=== PATIENT | male | born 1990 | race Caucasian/White ===

== ENCOUNTER 2021-07-14 04:38 | Emergency (ER) | payer BC, OTHER ==
[~2021-07-14] VITALS: Ht 185.4 cm; Wt 79.0 kg
[2021-07-14 05:39] VITALS: BP 132/94
== END 2021-07-14 07:43 | disposition home or self-care (01) ==
LOC: ER 04:38
DX: R00.0 Tachycardia, unspecified (principal); F41.9 Anxiety disorder, unspecified
CPT/HCPCS: 93005; 99283

== ENCOUNTER 2022-04-30 14:11 | Emergency (ER) | payer OTHER ==
[~2022-04-30] VITALS: Ht 185.4 cm; Wt 77.0 kg
[2022-04-30 16:13] VITALS: BP 110/71
== END 2022-04-30 16:14 | disposition home or self-care (01) ==
LOC: ER 14:11
DX: F41.9 Anxiety disorder, unspecified (principal); J40 Bronchitis, not specified as acute or chronic
CPT/HCPCS: 99281

== ENCOUNTER 2024-04-27 12:41 | Emergency (ER) | payer SELFPAY ==
[~2024-04-27] VITALS: Ht 188 cm; Wt 82.0 kg
[2024-04-27 12:50] VITALS: O2SAT 100
[2024-04-27] MEDS: FAMOTIDINE 20MG TABLET PO ONE (14:42)
[2024-04-27] MEDS: IBUPROFEN 600MG TABLET PO ONE (14:42)
[2024-04-27 15:08] VITALS: BP 132/77; PULSE 81; RESP 16; TEMP 36.89184; O2SAT 100
== END 2024-04-27 15:37 | disposition home or self-care (01) ==
LOC: ER 12:41
DX: K29.70 Gastritis, unspecified, without bleeding (principal); J06.9 Acute upper respiratory infection, unspecified; F41.9 Anxiety disorder, unspecified
CPT/HCPCS: 99283; Z7610 ×2

== ENCOUNTER 2024-07-22 00:30 | Emergency (ER) | payer SELFPAY ==
[~2024-07-22] VITALS: Ht 188 cm; Wt 83.0 kg
[2024-07-22 00:37] VITALS: O2SAT 100
[2024-07-22] MEDS: METOCLOPRAMIDE HCL 10MG TABLET PO ONE (02:00)
[2024-07-22] MEDS: KETOROLAC 30MG/ML VIAL IM ONE (03:38)
[2024-07-22 04:20] VITALS: BP 120/70; PULSE 64; RESP 16; TEMP 36.61404; O2SAT 100
== END 2024-07-22 04:24 | disposition home or self-care (01) ==
LOC: ER 00:48
DX: R51.9 Headache, unspecified (principal); F41.9 Anxiety disorder, unspecified
CPT/HCPCS: 99285; 70450; 96372; J1885; J8597